=== PATIENT | male | born 1990 | race Caucasian/White ===

== ENCOUNTER 2021-12-24 19:13 | Emergency (ER) | payer OTHER ==
[~2021-12-24] VITALS: Ht 188 cm; Wt 97.2 kg
[2021-12-24] MEDS ORDERED: sulfamethoxazole/trimethoprim DS (800/160mg) tablet PO ONE (21:15)
[2021-12-24] MEDS ORDERED: SULF1TAB49 PO (21:22)
[2021-12-24 21:39] VITALS: BP 147/82
== END 2021-12-24 21:42 | disposition home or self-care (01) ==
LOC: ER 19:15
DX: S01.01XA Laceration without foreign body of scalp, initial encounter (principal); S61.412A Laceration without foreign body of left hand, initial encounter; S01.81XA Laceration without foreign body of other part of head, initial encounter; W01.0XXA Fall on same level from slipping, tripping and stumbling without subsequent striking against object, initial encounter; Y93.89 Activity, other specified; Y92.89 Other specified places as the place of occurrence of the external cause; Y99.8 Other external cause status
CPT/HCPCS: 12002; 12011; 99284; J7030; A6449

== ENCOUNTER 2023-07-26 23:40 | Emergency (ER) | payer MEDICAID ==
[~2023-07-26] VITALS: Ht 188 cm; Wt 101.2 kg
[2023-07-27 00:27] VITALS: BP 143/82; PULSE 89; RESP 16; TEMP 97.4; O2SAT 97
== END 2023-07-27 02:58 | disposition left against medical advice (07) ==
LOC: ER 23:40
DX: M79.603 Pain in arm, unspecified (principal); Z53.21 Procedure and treatment not carried out due to patient leaving prior to being seen by health care provider
CPT/HCPCS: 99281

== ENCOUNTER 2023-07-27 03:40 | Emergency (ER) | payer MEDICAID ==
[~2023-07-27] VITALS: Ht 180.3 cm; Wt 101.0 kg
[2023-07-27 04:32] VITALS: BP 137/92; PULSE 97; RESP 18; TEMP 98.7; O2SAT 98
== END 2023-07-27 08:39 | disposition left against medical advice (07) ==
LOC: ER 03:41
DX: L02.413 Cutaneous abscess of right upper limb (principal); Z53.21 Procedure and treatment not carried out due to patient leaving prior to being seen by health care provider
CPT/HCPCS: 99281